=== PATIENT | female | born 1960 | race Caucasian/White ===

== ENCOUNTER → 2016-10-11 | Outpatient (CLI) | payer BC, OTHER ==
[~2016-10-11] MED LIST: AMOX875T PO; ASPI81TA28 PO; ATOR-14 PO; LISI20TA3 PO; LORA0.5T12 PO; OXYC1TAB3 PO; PRVC10 PO
--- NOTE | 2016-10-11 10:44 | DIAGNOSTIC IMAGING REPORT ---
LEFT KNEE 1 OR 2 VIEWS ROUTINE CLINICAL HISTORY: Left knee pain COMPARISON: None. DISCUSSION: No acute fractures are visualized. There are small calcific densities located adjacent the posterior medial aspect of the medial femoral condyle. These are felt to be chronic. There are no erosive or destructive changes. The joint spaces appear well-preserved for age on these nonweightbearing views IMPRESSION: 1. No acute fractures 2. No erosive or destructive lesions identified Electronically signed by: Jose Hough M.D. 10/11/2016 10:42 AM Dictated Date/Time: 10/11/2016 10:41 AM
== END | disposition home or self-care (01) ==
LOC: C.RAD1850 10:28
PROVIDERS: ATTEND Family Medicine
DX: M25.562 Pain in left knee (principal)

== ENCOUNTER → 2016-11-19 | Outpatient (CLI) | payer BC ==
[~2016-11-19] MED LIST changes: -AMOX875T PO; -LISI20TA3 PO; -OXYC1TAB3 PO; -PRVC10 PO
--- NOTE | 2016-11-19 12:16 | DIAGNOSTIC IMAGING REPORT ---
THORACIC SPINE 3 VIEWS ROUTINE HISTORY: Pain BACK PAIN COMPARISON: None. FINDINGS: There is no fracture. No subluxation. Disc spaces are preserved. IMPRESSION: No fracture or subluxation within the thoracic spine. The above report was generated using voice recognition software. It may contain grammatical, syntax or spelling errors. Electronically signed by: Stefano Shahid M.D. 11/19/2016 12:15 PM Dictated Date/Time: 11/19/2016 12:15 PM
--- NOTE | 2016-11-19 12:17 | DIAGNOSTIC IMAGING REPORT ---
L-SPINE MIN 4 VIEWS ROUTINE HISTORY: Pain BACK PAIN COMPARISON: None. FINDINGS: There is no fracture. No subluxation. Disc spaces are preserved. IMPRESSION: No fracture or subluxation within the lumbar spine. The above report was generated using voice recognition software. It may contain grammatical, syntax or spelling errors. Electronically signed by: Stefano Shahid M.D. 11/19/2016 12:16 PM Dictated Date/Time: 11/19/2016 12:16 PM
== END | disposition home or self-care (01) ==
LOC: C.RAD1850 11:53
PROVIDERS: ATTEND Student in an Organized Health Care Education/Training Program
DX: M54.5 Low back pain (principal)

== ENCOUNTER → 2016-11-22 | Outpatient (CLI) | payer BC ==
--- NOTE | 2016-11-22 10:42 | DIAGNOSTIC IMAGING REPORT ---
PELVIS 1 OR 2 VIEW ROUTINE HISTORY: 56 years-old Female acute sacral pain COMPARISON: None available TECHNIQUE: Single AP view of the pelvis FINDINGS: Mild to moderate degenerative changes are seen involving the bilateral femoral acetabular joints. Punctate likely fragmented osteophytes are seen adjacent to the right hip. Joint space narrowing is seen within the pubic symphysis and bilateral sacroiliac joints. There is facet arthropathy of the lower lumbar spine. No acute fracture or dislocation identified involving the bilateral femora or bony pelvis. Likely phleboliths are seen within the left hemipelvis. IMPRESSION: 1. No acute fracture or dislocation of the pelvis identified. 2. Mild to moderate degenerative changes of the bilateral femoral acetabular joints. The above report was generated using voice recognition software. It may contain grammatical, syntax or spelling errors. Electronically signed by: Juan Pablo Farrar M.D. 11/22/2016 10:41 AM Dictated Date/Time: 11/22/2016 10:38 AM
== END | disposition home or self-care (01) ==
LOC: C.RAD1850 10:23
PROVIDERS: ATTEND Family Medicine
DX: M53.3 Sacrococcygeal disorders, not elsewhere classified (principal)

== ENCOUNTER → 2017-02-11 | Outpatient (CLI) | payer BC ==
--- NOTE | 2017-02-11 15:57 | MAMMOGRAPHY REPORT ---
BILATERAL DIGITAL SCREENING MAMMOGRAM TOMOSYNTHESIS WITH CAD: 02/11/2017 CLINICAL HISTORY: Routine screening. Routine screening. TECHNIQUE: Breast tomosynthesis in addition to standard 2D mammography was performed. Current study was also evaluated with a Computer Aided Detection (CAD) system. COMPARISON: Comparison is made to exams dated: 08/06/2011 mammogram, 10/30/2010 mammogram, 10/30/2010 ultr asound, 10/28/2010 mammogram - [facility], and 04/17/2008. BREAST COMPOSITION: The tissue of both breasts is heterogeneously dense, which may obscure small mas ses. FINDINGS: No suspicious masses, calcifications, or areas of architectural distortion are noted in ei ther breast. There has been no significant interval change compared to prior exams. A few coarse piper ign dystrophic calcifications are seen bilaterally. IMPRESSION: ACR BI-RADS CATEGORY 2: BENIGN There is no mammographic evidence of malignancy. A 1 year screening mammogram is recommended. The pa tient will receive written notification of the results. Approximately 10% of breast cancers are not detected with mammography. A negative mammographic report should not delay biopsy if a clinically suggestive mass is present. Rhonda Bro M.D. ah/:02/11/2017 14:57:10 [employer] Occupational Therapist: Saurabh HELLER(R)(M), [facility] letter sent: Normal 1/2 BI-RADS Code: ACR BI-RADS Category 2: Benign
== END | disposition home or self-care (01) ==
LOC: C.MAMM 13:46
PROVIDERS: ATTEND Family Medicine
DX: Z12.31 Encounter for screening mammogram for malignant neoplasm of breast (principal)

== ENCOUNTER 2017-02-21 08:31 | Emergency (ER) | payer BC ==
[~2017-02-21] VITALS: Ht 165.1 cm; Wt 60.4 kg
[2017-02-21 08:35] VITALS: TEMP 37; Ht 165.1 cm; Wt 60.4 kg
[2017-02-21] MEDS ORDERED: OPTIRAY 320 IV PRN (09:00)
[2017-02-21 09:15] LABS: BASO % 0.3 %; BASO ABS # 0.03 K/uL (0-0.2); COMPLETE YES; EOS % 0.4 %; HEMATOCRIT 36.5 % (37-47); IG% 0.3 %; LYMPH % 16.6 %; LYMPH ABS # 1.55 K/uL (1.2-3.4); MEAN CELL VOLUME 88.2 fL (80-100); MEAN CORPUSCULAR HEMOGLOBIN 30.4 pg (25-34); MEAN CORPUSCULAR HGB CONC 34.5 g/dl (32-36); MEAN PLATELET VOLUME 9.9 fL (7.4-10.4); MONO % 15.8 %; NEUT % 66.6 %; PLATELET COUNT 164 K/uL (130-400); RED BLOOD COUNT 4.14 M/uL (4.2-5.4); WHITE BLOOD COUNT 9.35 K/uL (4.8-10.8)
[2017-02-21 09:16] LABS: URINE APPEARANCE CLEAR (CLEAR); URINE BILIRUBIN NEG (NEG); URINE COLOR YELLOW; URINE NITRITE NEG (NEG); URINE SPECIFIC GRAVITY 1.011 (1.000-1.030); UROBILINOGEN NEG (NEG); ZZUR CULT IF INDIC CLEAN CATCH NO
[2017-02-21 09:21] LABS: MANUAL MICROSCOPIC REQUIRED? NO; REVIEW REQ? NO
[2017-02-21 09:24] LABS: INR 0.9 (0.9-1.1); PARTIAL THROMBOPLASTIN RATIO 1.2; PROTHROMBIN TIME (PATIENT) 9.9 SECONDS (9.0-12.0)
[2017-02-21 09:32] LABS: BUN/CREATININE RATIO 9.8 (10-20); CALCIUM 8.9 mg/dl (8.5-10.1); CREATININE 0.63 mg/dl (0.60-1.20); MAGNESIUM 1.8 mg/dl (1.8-2.4); POTASSIUM 3.7 mmol/L (3.5-5.1)
[2017-02-21 09:35] LABS: ALB/GLOB RATIO 0.9 (0.9-2)
[2017-02-21] MEDS ORDERED: LISI20TA3 PO (09:42)
[2017-02-21] MEDS ORDERED: PRVC10 PO (09:42)
[2017-02-21 11:32] VITALS: O2SAT 100
--- NOTE | 2017-02-21 12:46 | DIAGNOSTIC IMAGING REPORT ---
ABD/PELVIS IV AND ORAL CONT HISTORY: 56 years-old Female L flank pain, hx diverticulitis acute left-sided flank pain with constipation nausea. History of acute diverticulitis. COMPARISON: None available TECHNIQUE: Multiple axial CT images of the abdomen and pelvis were obtained following the intravenous administration of 94 mL Optiray 320. Oral contrast also used. A dose lowering technique was used consistent with the principals of JANEY. FINDINGS: Lung bases are generally clear. Imaged inferior cardiac chambers are unremarkable. Aortic annular calcifications. The liver, spleen, pancreas and adrenal glands are unremarkable. There are apparent multiple mucosal folds of the gallbladder without evidence of cholelithiasis or acute cholecystitis. No intrahepatic biliary ductal dilation. Portal vein is patent. 3 mm low attenuating lesion of the inferior pole left kidney is too small to characterize however suggests cyst. Kidneys, ureters, urinary bladder, uterus and adnexa are unremarkable. Mild free pelvic fluid, likely reactive. The abdominal aorta is normal in both course and caliber. No bulky adenopathy. There is no bowel obstruction. Moderate to extensive sigmoid diverticulosis. Diverticula of the descending colon are also noted. There is moderate wall thickening with moderate mesenteric inflammatory stranding surrounding inflammatory diverticula of the distal aspect descending colon as seen on image 227 of series 3. No evidence of perforation or abscess. Normal appendix. Nonspecific coarse calcifications of the inferior left breast parenchyma partially imaged. Soft tissues are otherwise unremarkable. Bones appear intact. Facet arthrosis of the lower lumbar spine. IMPRESSION: 1. Findings compatible with acute uncomplicated diverticulitis of the distal portion descending colon. Correlate with follow-up colonoscopy following treatment to exclude the less likely possibility of colonic neoplasm. 2. Nonspecific coarse parenchymal calcifications of the inferior left breast. Correlate with mammography. The above report was generated using voice recognition software. It may contain grammatical, syntax or spelling errors. Electronically signed by: Juan Pablo Farrar M.D. 02/21/2017 12:45 PM Dictated Date/Time: 02/21/2017 12:38 PM
[2017-02-21] MEDS ORDERED: AMOX875T PO (13:29)
[2017-02-21] MEDS ORDERED: OXYC1TAB3 PO (13:29)
--- NOTE | 2017-02-21 13:34 | EMERGENCY ROOM VISIT NOTE ---
History First contact with patient: 08:36 Chief Complaint: ABDOMINAL PAIN Stated Complaint: PAIN IN LEFT SIDE OF ABD. Nursing Triage Summary: Pt reports left sided abd pain since 0300. Feels constipated and nauseated. Hx of diverticulitis. Denies flank pain. History of Present Illness The patient is a 56 year old female who presents to the Emergency Room via private vehicle with complaints of "left sided abdominal pain". The patient states that around 3 AM this morning she noted left upper radiating to left lower quadrant abdominal pain. She has history of diverticulitis. Her pain is an 8/10. There is associated nausea. No vomiting, chest pain, shortness of breath, urinary symptoms. She denies any contacts with similar symptoms. Review of Systems A complete 10-point Review of Systems was discussed with the patient, with pertinent positives and negatives listed in the History of Present Illness. All remaining Review of Systems questions can be considered negative unless otherwise specified. Past Medical/Surgical History Medical Problems: (1) Anxiety (2) section Family History No pertinent. Social History Smoking Status: Never Smoker Marital Status: Occupation Status: employed Current/Historical Medications Scheduled Amoxicillin & Pot Clavulanate (Augmentin 875-125 mg), 1 TAB PO BID Lisinopril (Prinivil), 20 MG PO DAILY Pravastatin Sod (Pravastatin Sodium), 10 MG PO UD Scheduled PRN Oxycodone Ir (Roxicodone Ir), 1-2 TAB PO Q4H PRN for Pain Allergies Coded Allergies: No Known Allergies (Unverified , 02/21/17) Physical Exam Vital Signs Date Time Temp Pulse Resp B/P (MAP) Pulse Ox O2 Delivery O2 Flow Rate FiO2 02/21/17 13:48 98 18 146/97 97 02/21/17 11:32 100 Room Air 02/21/17 11:31 84 20 163/97 100 Room Air 02/21/17 11:04 79 20 156/94 100 Room Air 02/21/17 08:35 37.0 110 18 164/98 97 Room Air Physical Exam VITAL SIGNS - Vital signs and nursing notes were reviewed. Stable. GENERAL - 56-year-old female appearing her stated age who is in no acute distress. Communicates well with provider and answers questions appropriately. SKIN - Without rashes. HEAD - NC/AT. EYES - Sclera anicteric. LUNGS - Chest wall symmetric without accessory muscle use, intercostals retractions, or central cyanosis. Normal vesicular breath sounds CTA B/L. No wheezes, rales, or rhonchi appreciated. CARDIAC - RRR with S1/S2. No murmur, rubs, or gallops appreciated. ABDOMEN - Abdominal contour normal without pulsations or visible masses. BS normoactive all four quadrants. There is left lower quadrant abdominal tenderness. No palpable masses, hepatosplenomegaly, or ascites noted. EXTREMITIES - No clubbing or peripheral cyanosis. No pretibial edema present. +5 /5 strength noted in UE/LE bilaterally. Medical Decision & Procedures ER Provider Diagnostic Interpretation: ABD/PELVIS IV AND ORAL CONT HISTORY: 56 years-old Female L flank pain, hx diverticulitis acute left-sided flank pain with constipation nausea. History of acute diverticulitis. COMPARISON: None available TECHNIQUE: Multiple axial CT images of the abdomen and pelvis were obtained following the intravenous administration of 94 mL Optiray 320. Oral contrast also used. A dose lowering technique was used consistent with the principals of JANEY. FINDINGS: Lung bases are generally clear. Imaged inferior cardiac chambers are unremarkable. Aortic annular calcifications. The liver, spleen, pancreas and adrenal glands are unremarkable. There are apparent multiple mucosal folds of the gallbladder without evidence of cholelithiasis or acute cholecystitis. No intrahepatic biliary ductal dilation. Portal vein is patent. 3 mm low attenuating lesion of the inferior pole left kidney is too small to characterize however suggests cyst. Kidneys, ureters, urinary bladder, uterus and adnexa are unremarkable. Mild free pelvic fluid, likely reactive. The abdominal aorta is normal in both course and caliber. No bulky adenopathy. There is no bowel obstruction. Moderate to extensive sigmoid diverticulosis. Diverticula of the descending colon are also noted. There is moderate wall thickening with moderate mesenteric inflammatory stranding surrounding inflammatory diverticula of the distal aspect descending colon as seen on image 227 of series 3. No evidence of perforation or abscess. Normal appendix. Nonspecific coarse calcifications of the inferior left breast parenchyma partially imaged. Soft tissues are otherwise unremarkable. Bones appear intact. Facet arthrosis of the lower lumbar spine. IMPRESSION: 1. Findings compatible with acute uncomplicated diverticulitis of the distal portion descending colon. Correlate with follow-up colonoscopy following treatment to exclude the less likely possibility of colonic neoplasm. 2. Nonspecific coarse parenchymal calcifications of the inferior left breast. Correlate with mammography. The above report was generated using voice recognition software. It may contain grammatical, syntax or spelling errors. Electronically signed by: Juan Pablo Farrar M.D. 02/21/2017 12:45 PM Dictated Date/Time: 02/21/2017 12:38 PM Laboratory Results 02/21/17 08:58 Red Blood Count 4.14, Mean Corpuscular Volume 88.2, Mean Corpuscular Hemoglobin 30.4, Mean Corpuscular Hemoglobin Concent 34.5, Mean Platelet Volume 9.9, Neutrophils (%) (Auto) 66.6, Lymphocytes (%) (Auto) 16.6, Monocytes (%) (Auto) 15.8, Eosinophils (%) (Auto) 0.4, Basophils (%) (Auto) 0.3, Neutrophils # (Auto ) 6.22, Lymphocytes # (Auto) 1.55, Monocytes # (Auto) 1.48, Eosinophils # (Auto ) 0.04, Basophils # (Auto) 0.03 02/21/17 08:58 Test 02/21/17 08:58 02/21/17 09:00 White Blood Count 9.35 K/uL (4.8-10.8) Red Blood Count 4.14 M/uL (4.2-5.4) Hemoglobin 12.6 g/dL (12.0-16.0) Hematocrit 36.5 % (37-47) Mean Corpuscular Volume 88.2 fL (80-100) Mean Corpuscular Hemoglobin 30.4 pg (25-34) Mean Corpuscular Hemoglobin Concent 34.5 g/dl (32-36) Platelet Count 164 K/uL (130-400) Mean Platelet Volume 9.9 fL (7.4-10.4) Neutrophils (%) (Auto) 66.6 % Lymphocytes (%) (Auto) 16.6 % Monocytes (%) (Auto) 15.8 % Eosinophils (%) (Auto) 0.4 % Basophils (%) (Auto) 0.3 % Neutrophils # (Auto) 6.22 K/uL (1.4-6.5) Lymphocytes # (Auto) 1.55 K/uL (1.2-3.4) Monocytes # (Auto) 1.48 K/uL (0.11-0.59) Eosinophils # (Auto) 0.04 K/uL (0-0.5) Basophils # (Auto) 0.03 K/uL (0-0.2) RDW Standard Deviation 45.7 fL (36.4-46.3) RDW Coefficient of Variation 14.1 % (11.5-14.5) Immature Granulocyte % (Auto) 0.3 % Immature Granulocyte # (Auto) 0.03 K/uL (0.00-0.02) Prothrombin Time 9.9 SECONDS (9.0-12.0) Prothromb Time International Ratio 0.9 (0.9-1.1) Activated Partial Thromboplast Time 31.3 SECONDS (21.0-31.0) Partial Thromboplastin Ratio 1.2 Anion Gap 10.0 mmol/L (3-11) Est Creatinine Clear Calc Drug Dose 90.8 ml/min Estimated GFR () 117.0 Estimated GFR (Non- 101.0 BUN/Creatinine Ratio 9.8 (10-20) Calcium Level 8.9 mg/dl (8.5-10.1) Magnesium Level 1.8 mg/dl (1.8-2.4) Total Bilirubin 0.4 mg/dl (0.2-1) Aspartate Amino Transf (AST/SGOT) 29 U/L (15-37) Alanine Aminotransferase (ALT/SGPT) 35 U/L (12-78) Alkaline Phosphatase 72 U/L (45-117) Total Protein 7.9 gm/dl (6.4-8.2) Albumin 3.7 gm/dl (3.4-5.0) Globulin 4.2 gm/dl (2.5-4.0) Albumin/Globulin Ratio 0.9 (0.9-2) Lipase 197 U/L (73-393) Urine Color YELLOW Urine Appearance CLEAR (CLEAR) Urine pH 5.0 (4.5-7.5) Urine Specific [place] 1.011 (1.000-1.030) Urine Protein NEG (NEG) Urine Glucose (UA) NEG (NEG) Urine Ketones NEG (NEG) Urine Occult Blood NEG (NEG) Urine Nitrite NEG (NEG) Urine Bilirubin NEG (NEG) Urine Urobilinogen NEG (NEG) Urine Leukocyte Esterase NEG (NEG) Medical Decision Patient was seen in a violent as above. After obtaining a thorough history and physical examination IV access was initiated, and the above workup was performed. The patient presents to us today with left lower quadrant abdominal pain. She has a history of diverticulitis. Benefits versus risk of obtaining CAT scan was discussed, and the decision was made to obtain a CT scan. Results as above. Acute uncomplicated diverticulitis. She was informed upon the incidental findings of which she is to follow up with family doctor for. CBC reveals no concern leukocytosis. Slight anemia noted. Coags reveal a slight elongation of the PTT at 31.3. Sodium low at 130, creatinine of 0.6. Case was discussed with the attending physician. Urine is negative. She'll be given Augmentin. Benefits versus risk of doing Cipro Flagyl versus Augmentin was discussed and the decision was made to use Augmentin. She'll also be given oxycodone immediate release for her pain. She was educated upon management, educated upon worrisome symptoms which to return, had questions answered prior to discharge, and was discharged home in good condition. In evaluation treatment this patient the following differential diagnoses were entertained: Diverticulitis, appendicitis, mesenteric ischemia, epiploic appendicitis, mesenteric adenitis, cancer, among others. [place] Drug Monitoring Program Search Results: patient reviewed within database, no issues identified Impression Primary Impression: Diverticulitis Departure Information Dispostion Home / Self-Care Condition GOOD Prescriptions Oxycodone Ir (Roxicodone Ir) 5 Mg Tab 1-2 TAB PO Q4H Y for Pain, #20 TAB For Initial Treatment Prov: Clinton Seals PA-C 02/21/17 Amoxicillin & Pot Clavulanate (Augmentin 875-125 mg) 1 Tab Tab 1 TAB PO BID for 10 Days, #20 TAB Prov: Clinton Seals PA-C 02/21/17 Referrals Alonso Suarez M.D. (PCP) Patient Instructions ED Diverticulitis, [facility] Additional Instructions You have been treated in the Emergency Department your Abdominal Pain. Laboratory results and imaging studies have revealed Diverticulitis. You have been prescribed Oxy IR to be used for pain control. This is a narcotic medication. You cannot drive or consume alcohol while on this medicine. This medicine should only be used for pain that cannot be controlled with over-the- counter pain medicines. For pain control, you can use the following [id number] medicines: - Regular strength (325mg/tab) Tylenol (acetaminophen) 2 tabs every 4-6 hours as needed. Do not exceed 12 tablets in a 24 hour period. Avoid taking more than 3 grams (3000 mg) of Tylenol per day. This includes any other sources of acetaminophen you may take on a regular basis. - Regular strength (200 mg/tab) Advil (ibuprofen) 1-2 tabs every 4-6 hours as needed. Do not exceed a dose of 3200 mg per day. Drink plenty of water and stay well hydrated. As with any trip to the Emergency Department, you should follow-up with your Primary Care Provider from today's visit. Return to the emergency department if your symptoms persist despite treatment plan outlined above or if the following symptoms occur: increased fevers, chills , worsening nausea/vomiting, blood in your stool or urine. ABD/PELVIS IV AND ORAL CONT HISTORY: 56 years-old Female L flank pain, hx diverticulitis acute left-sided flank pain with constipation nausea. History of acute diverticulitis. COMPARISON: None available TECHNIQUE: Multiple axial CT images of the abdomen and pelvis were obtained following the intravenous administration of 94 mL Optiray 320. Oral contrast also used. A dose lowering technique was used consistent with the principals of JANEY. FINDINGS: Lung bases are generally clear. Imaged inferior cardiac chambers are unremarkable. Aortic annular calcifications. The liver, spleen, pancreas and adrenal glands are unremarkable. There are apparent multiple mucosal folds of the gallbladder without evidence of cholelithiasis or acute cholecystitis. No intrahepatic biliary ductal dilation. Portal vein is patent. 3 mm low attenuating lesion of the inferior pole left kidney is too small to characterize however suggests cyst. Kidneys, ureters, urinary bladder, uterus and adnexa are unremarkable. Mild free pelvic fluid, likely reactive. The abdominal aorta is normal in both course and caliber. No bulky adenopathy. There is no bowel obstruction. Moderate to extensive sigmoid diverticulosis. Diverticula of the descending colon are also noted. There is moderate wall thickening with moderate mesenteric inflammatory stranding surrounding inflammatory diverticula of the distal aspect descending colon as seen on image 227 of series 3. No evidence of perforation or abscess. Normal appendix. Nonspecific coarse calcifications of the inferior left breast parenchyma partially imaged. Soft tissues are otherwise unremarkable. Bones appear intact. Facet arthrosis of the lower lumbar spine.
[2017-02-21 13:48] VITALS: BP 146/97; PULSE 98; O2SAT 97
== END 2017-02-21 13:49 | disposition home or self-care (01) ==
LOC: C.EDB 08:32 → C.EDA 13:49
DX: K57.92 Diverticulitis of intestine, part unspecified, without perforation or abscess without bleeding (principal); F41.9 Anxiety disorder, unspecified; Z79.899 Other long term (current) drug therapy

== ENCOUNTER 2021-06-03 18:12 | Inpatient (IN) ==
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
[2021-06-03] MEDS ORDERED: SODIUM CHLORIDE 0.9% 500 ML IV SCH (18:45)
[2021-06-03 19:04] LABS: Basophils # (auto) 0.05 K/uL (0-0.2); Basophils % (auto) 0.6 %; Eosinophils # (auto) 0.05 K/uL (0-0.5); Eosinophils % (auto) 0.6 %; Hematocrit (blood only) 33.5 % (37-47); Hemoglobin 11.6 g/dL (12.0-16.0); Immature Granulocytes # (auto) 0.07 K/uL (0.00-0.02); Immature Granulocytes % (auto) 0.8 %; Lymphocytes # (auto) 1.63 K/uL (1.2-3.4); Lymphocytes % (auto) 19.8 %; Mean Corpuscular Hemoglobin 30.6 pg (25-34); Mean Corpuscular Hgb Conc 34.6 g/dL (32-36); Mean Corpuscular Volume 88.4 fL (80-100); Mean Platelet Volume 9.4 fL (7.4-10.4); Neutrophils # (auto) 5.04 K/uL (1.4-6.5); Neutrophils % (auto) 61.2 %; Platelet Count 187 K/uL (130-400); RDW Coefficient of Variation 14.7 % (11.5-14.5); RDW Standard Deviation 47.3 fL (36.4-46.3); Red Blood Count 3.79 M/uL (4.2-5.4); White Blood Count 8.24 K/uL (4.8-10.8)
[2021-06-03 19:14] LABS: Appearance Urine Clear (Clear); Bacteria Urine Automated Negative (Negative); Bilirubin Urine Negative (Negative); Blood Urine 1+ (Negative); Cast Urine Automated 0 /lpf (0-5); Color Urine Yellow; Epithelial Cell Urine Auto 20-30 /lpf (0-5); Glucose Urine UA Negative (Negative); Ketones Urine Trace (Negative); Leukocyte Esterase Urine Trace (Negative); Nitrite Urine Negative (Negative); Protein Urine 2+ (Negative); RBC Urine Automated 0-4 /hpf (0-4); Specific Gravity Urine 1.008 (1.000-1.030); Urobilinogen Urine Negative (Negative)
[2021-06-03 19:16] LABS: Alanine Aminotransferase 29 U/L (7-52); Albumin Globulin Ratio 1.2 (0.9-2); Albumin Level 4.3 gm/dl (3.4-5.0); Alkaline Phosphatase 49 U/L (34-104); Anion Gap 16 (3-11); BUN Creatinine Ratio 17.5 (10-20); Bilirubin,Total 0.8 mg/dl (0.2-1.0); Blood Urea Nitrogen 11 mg/dl (6-23); Calcium 8.8 mg/dl (8.5-10.1); Carbon Dioxide 19 mmol/L (21-32); Chloride 85 mmol/L (98-107); Creatine Kinase 208 U/L (26-192); Est GFR (Non-African American) 97.5 ml/min; Globulin 3.7 gm/dl (2.5-4.0); Glucose 132 mg/dl (70-99(Fasting)); Magnesium 1.6 mg/dl (1.7-2.4); Sodium 120 mmol/L (136-145)
--- NOTE | 2021-06-03 19:27 | CT Scan Report ---
CT head/brain wo con CLINICAL HISTORY: 61 years-old Female with sz. Acute seizure TECHNIQUE: Multiple axial CT images of the head were obtained without contrast. A dose lowering tech nique was utilized adhering to the principles of ALARA. CT DOSE: 537.48 mGy.cm COMPARISON: Brain MRI 04/01/2021, chest CT 01/18/2009 FINDINGS: No acute intracranial hemorrhage, midline shift, intracranial mass, hydrocephalus, territorial ischem ia or abnormal extra-axial collection. Age-related involutional changes. Mild white matter hypodensit ies suggest chronic microvascular ischemic disease. Cerebral vascular calcifications. The calvarium is intact. The paranasal sinuses, mastoid air cells, and middle ear cavities are clear . IMPRESSION: No acute intracranial abnormality. ACT 112: Negative or not required by law. The above report was generated using voice recognition software. It may contain grammatical, syntax o r spelling errors. Electronically signed by: Kenrick Farrar M.D. 06/03/2021 7:25 PM
[2021-06-03 19:44] LABS: Amphetamines+Metham, Urine Neg (Neg); Barbiturates, Urine Neg (Neg); Benzodiazepine, Urine Neg (Neg); Cocaine, Urine Neg (Neg); MDMA (Ecstacy), Urine Neg (Neg); Methadone, Urine Neg (Neg); Opiate, Urine Neg (Neg); Phencyclidine, Urine Neg (Neg)
[2021-06-03 20:35] LABS: Potassium 2.9 mmol/L (3.5-5.1)
--- NOTE | 2021-06-03 20:46 | XRay Report ---
XR chest 1V portable HISTORY: 61 years-old Female low Na hyponatremia COMPARISON: Chest radiograph 09/16/2019 TECHNIQUE: Portable AP view of the chest FINDINGS: Cardiomediastinal and hilar silhouettes are within normal limits. No pneumothorax, pleural effusion, airspace consolidation or overt pulmonary edema. Surgical clip projects over the right breast. Bones of the chest appear grossly intact. IMPRESSION: No acute process. ACT 112: Negative or not required by law. The above report was generated using voice recognition software. It may contain grammatical, syntax o r spelling errors. Electronically signed by: Kenrick Farrar M.D. 06/03/2021 8:44 PM
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
[2021-06-03] MEDS ORDERED: ACETAMINOPHEN 325 MG TAB PO PRN (22:58)
[2021-06-04] MEDS: SODIUM CHLORIDE 1 GM TABLET PO SCH ×2 (00:42→09:23)
[2021-06-04 00:56] LABS: Anion Gap 9 (3-11); BUN Creatinine Ratio 14.8 (10-20); Blood Urea Nitrogen 8 mg/dl (6-23); Calcium 8.7 mg/dl (8.5-10.1); Carbon Dioxide 26 mmol/L (21-32); Chloride 92 mmol/L (98-107); Est GFR (African American) 118.9 ml/min; Est GFR (Non-African American) 102.6 ml/min; Glucose 88 mg/dl (70-99(Fasting)); Potassium 2.9 mmol/L (3.5-5.1); Sodium 127 mmol/L (136-145)
[2021-06-04] MEDS ORDERED: POTASSIUM CHLORIDE CRTAB 20 MEQ TABCR PO ONE (06:00)
[2021-06-04 07:34] LABS: BUN Creatinine Ratio 13.2 (10-20); Calcium 8.9 mg/dl (8.5-10.1); Creatinine Clr Calc Pharmacy 101.6 ml/min; Est GFR (African American) 119.6 ml/min; Est GFR (Non-African American) 103.2 ml/min; Magnesium 1.7 mg/dl (1.7-2.4); Potassium 3.2 mmol/L (3.5-5.1)
[2021-06-04] MEDS ORDERED: MAGNESIUM OXIDE 400 MG TAB PO SCH (09:00)
[2021-06-04] MEDS ORDERED: METOPROLOL SUCC 50MG EXT REL TAB PO SCH (09:00)
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
[2021-06-04 13:15] LABS: BUN Creatinine Ratio 15.5 (10-20); Calcium 8.9 mg/dl (8.5-10.1); Creatinine Clr Calc Pharmacy 92.8 ml/min; Est GFR (African American) 116.1 ml/min; Est GFR (Non-African American) 100.2 ml/min; Potassium 3.3 mmol/L (3.5-5.1)
[2021-06-04] MEDS ORDERED: POTASSIUM CHLORIDE CRTAB 20 MEQ TABCR PO STA (13:50)
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
--- NOTE | 2021-06-04 19:23 | Billing Data ---
Date of Service June 04, 2021 Coding Level of Care Code D/C DAY MANAGEMENT <30 MINS
[2021-06-04] MEDS ORDERED: PRAVASTATIN SOD 20 MG TAB PO SCH (21:00)
--- NOTE | 2021-06-04 22:23 | Electrocardiogram Report ---
Test Reason : Blood Pressure : / mmHG Vent. Rate : 081 BPM Atrial Rate : 081 BPM P-R Int : 168 ms QRS Dur : 090 ms QT Int : 414 ms P-R-T Axes : 067 018 033 degrees QTc Int : 480 ms Normal sinus rhythm Possible Left atrial enlargement Prolonged QT Abnormal ECG When compared with ECG of 16-SEP-2019 19:15, Premature ventricular complexes are no longer Present Confirmed by Jairon Roger ([id number]) on 06/04/2021 10:23:17 PM Referred By: REFERRED SELF Confirmed By:Jairon Roger
--- NOTE | 2021-06-04 22:26 | Billing Data ---
Date of Service June 04, 2021 Coding Level of Care Code 44036 Initial Inpt Care Lvl 3
== END 2021-06-04 17:22 | disposition home or self-care (01) | DRG 641 ==
LOC: ED 18:12 → SUATTDRO 22:16 → EDINP 22:16 → 2S 22:57